=== PATIENT | female | born 1935 | race African-American/Black ===

== ENCOUNTER 2016-08-16 17:47 | Emergency (ER) | payer MEDICARE, OTHER, BC ==
--- NOTE | 2016-08-16 18:03 | ER Document Report ---
ED Medical Screen (RME) - General Chief Complaint: Arm Pain Stated Complaint: FALL/RIGHT SHOULDER PAIN Mode of Arrival: Wheelchair Information source: Patient Notes: Patient presents with right shoulder pain down to her elbow. Patient reports that she fell in the house getting ready for yazidism. No change in LOC. Does not take anticoagulants. Took Tylenol prior to arrival. I have greeted and performed a rapid initial assessment of this patient. A comprehensive ED assessment and evaluation of the patient, analysis of test results and completion of the medical decision making process will be conducted by additional ED providers. TRAVEL OUTSIDE OF THE [place] IN LAST 30 DAYS: No - Related Data Allergies/Adverse Reactions: No Known Allergies Allergy (Verified 08/16/16 18:00) Past Medical History - Past Medical History Cardiac Medical History: Reports: Hx Hypertension Endocrine Medical History: Reports: Hx Diabetes Mellitus Type 2 Renal/ Medical History: Denies: Hx Peritoneal Dialysis Physical Exam - Vital signs Vitals: Temp Pulse Resp BP Pulse Ox 98.5 F 75 20 191/67 H 99 08/16/16 17:54 08/16/16 17:54 08/16/16 17:54 08/16/16 17:54 08/16/16 17:54 Course - Vital Signs Vital signs: Temp Pulse Resp BP Pulse Ox 98.5 F 75 20 191/67 H 99 08/16/16 17:54 08/16/16 17:54 08/16/16 17:54 08/16/16 17:54 08/16/16 17:54
[2016-08-16] MEDS ORDERED: OXYCODONE HCL IR 5 MG TABLET PO ONE (19:12)
--- NOTE | 2016-08-16 19:18 | ER Document Report ---
ED Fall - General Chief Complaint: Arm Pain Stated Complaint: FALL/RIGHT SHOULDER PAIN Time seen by provider: 19:10 Mode of Arrival: Wheelchair Information source: Patient Notes: Patient is a 81 year old female that comes to the ED for chief complaint of pain in her right arm from a fall. Patient states she was hurrying to get ready for christianity and was not watching where she was going, she states she tripped and fell, she states the main impact of the fall was on her right arm. She denies loss of consciousness, neck pain, focal numbness or weakness, hip pain, she states that she walked without any trouble after the fall. She is on aspirin, takes no other blood thinners. She took Tylenol before coming to the emergency department with her daughter who is at bedside. TRAVEL OUTSIDE OF THE [place] IN LAST 30 DAYS: No - Related data Allergies/Adverse Reactions: No Known Allergies Allergy (Verified 08/16/16 18:00) Past Medical History - General Information source: Patient - Social History Smoking Status: Never Smoker Frequency of alcohol use: None Drug Abuse: None Lives with: Family Family History: Reviewed & Not Pertinent - Past Medical History Cardiac Medical History: Reports: Hx Hypertension Endocrine Medical History: Reports: Hx Diabetes Mellitus Type 2 Renal/ Medical History: Denies: Hx Peritoneal Dialysis - Immunizations Hx Diphtheria, Pertussis, Tetanus Vaccination: Yes Review of Systems - Review of Systems Constitutional: No symptoms reported EENT: No symptoms reported Cardiovascular: No symptoms reported Respiratory: No symptoms reported Gastrointestinal: No symptoms reported Genitourinary: No symptoms reported Female Genitourinary: No symptoms reported Musculoskeletal: See HPI Skin: No symptoms reported Hematologic/Lymphatic: No symptoms reported Neurological/Psychological: No symptoms reported Physical Exam - Vital signs Vitals: Temp Pulse Resp BP Pulse Ox 98.5 F 75 20 191/67 H 99 08/16/16 17:54 08/16/16 17:54 08/16/16 17:54 08/16/16 17:54 08/16/16 17:54 Interpretation: Normal - General General appearance: Appears well, Alert In distress: None - Patient sitting calmly and quietly, appears to be in no distress, alert - HEENT Head: Normocephalic, Atraumatic Eyes: Normal Conjunctiva: Normal Extraocular movements intact: Yes Eyelashes: Normal Pupils: PERRL Nasal: Normal Mouth/Lips: Normal Mucous membranes: Normal Pharynx: Normal Neck: Normal - Respiratory Respiratory status: No respiratory distress Chest status: Nontender Breath sounds: Normal Chest palpation: Normal - Cardiovascular Rhythm: Regular Heart sounds: Normal auscultation Murmur: No - Abdominal Inspection: Normal Distension: No distension Bowel sounds: Normal Tenderness: Nontender Organomegaly: No organomegaly - Back Back: Normal, Nontender. No: Vertebra tenderness - Normal cervical, thoracic, lumbar exam, no saddle anesthesia. - Extremities General upper extremity: Other - Patient favoring her right arm, is tender over the proximal humerus area, limited range of motion, normal distal neurovascular exam General lower extremity: Normal inspection, Nontender, Normal color, Normal ROM , Normal temperature, Normal weight bearing. No: Edelmira's sign - Neurological Neuro grossly intact: Yes Cognition: Normal Orientation: AAOx4 Fredrick Coma Scale Eye Opening: Spontaneous [place] Coma Scale Verbal: Oriented [place] Coma Scale Motor: Obeys Commands [place] Coma Scale Total: 15 Speech: Normal Motor strength normal: LUE, RUE, LLE, RLE Sensory: Normal - Psychological Associated symptoms: Normal affect, Normal mood - Skin Skin Temperature: Warm Skin Moisture: Dry Skin Color: Normal Course - Re-evaluation Re-evalutation: Patient well-appearing and alert. Patient denies head injury or neck pain, however I did review CT of the head and cervical spine with no acute findings. Patient with no neurological deficits, alert and very well appearing on exam, patient does have point tenderness over the right humeral area, x-ray confirms a fracture. Fracture is proximal. Normal distal neurovascular exam. Patient placed in sling immobilization, provided with pain medication, referred for close orthopedic follow-up, patient and daughter state understanding and agreement. - Vital Signs Vital signs: Temp Pulse Resp BP Pulse Ox 98.5 F 75 20 187/81 H 98 08/16/16 17:54 08/16/16 17:54 08/16/16 17:54 08/16/16 19:51 08/16/16 19:50 Procedures - Immobilization right arm Pre-Proc Neuro Vasc Exam: Normal Immobilizer type: Sling Performed by: RN Post-Proc Neuro Vasc Exam: Normal Alignment checked and good: Yes Discharge - Discharge Clinical Impression: Fall Qualifiers: Encounter type: initial encounter Qualified Code(s): W19.XXXA - Unspecified fall, initial encounter Proximal humerus fracture Qualifiers: Encounter type: initial encounter Fracture type: closed Fracture morphology: other fracture Fracture alignment: nondisplaced Laterality: right Qualified Code (s): S42.294A - Other nondisplaced fracture of upper end of right humerus, initial encounter for closed fracture Condition: Stable Disposition: HOME, SELF-CARE Additional Instructions: You have a fracture in the humerus bone near your shoulder - the long bone of your arm that attaches your shoulder to your elbow. Wear the sling, you can ice the area of pain, take the pain medication (use caution, this can be sedating, this also makes you constipated, if you take pain medicine please also take the stool softener prescribed). Follow-up with the orthopedics referral for additional management. Return to the emergency department for any concerning symptoms. Prescriptions: Docusate Sodium [Colace 100 mg Capsule] 100 mg PO DAILY #20 capsule Oxycodone HCl/Acetaminophen [Percocet 5-325 mg Tablet] 1 tab PO Q4H PRN #15 tablet PRN Reason: Forms: Elevated Blood Pressure Referrals: RICCARDO PORTILLO DO [ACTIVE STAFF] - Follow up in 3-5 days
[2016-08-16 19:56] VITALS: BP 187/81
== END 2016-08-16 19:56 | disposition home or self-care (01) ==
LOC: ER 17:47
DX: S42.294A Other nondisplaced fracture of upper end of right humerus, initial encounter for closed fracture (principal); W01.0XXA Fall on same level from slipping, tripping and stumbling without subsequent striking against object, initial encounter; Y92.009 Unspecified place in unspecified non-institutional (private) residence as the place of occurrence of the external cause; I10 Essential (primary) hypertension; E11.9 Type 2 diabetes mellitus without complications; Z79.82 Long term (current) use of aspirin
CPT/HCPCS: 99284; 73060; 70450; 72125; A9270